=== PATIENT | male | born 1985 | race African-American/Black ===

== ENCOUNTER 2024-12-30 10:20 | Emergency (ER) | payer SELFPAY ==
--- NOTE | ~2024-12-30 | CT_ITS ---
EXAMINATION: CT brain wo con DATE: 12/30/2024 11:54 INDICATION: Headache. TECHNIQUE: Computed tomography (CT) of the head was performed without intravenous contrast. The mA wa s adjusted according to patient size. Iterative reconstruction technique was employed. The dose-lengt h product was 681.00 mGy-cm. COMPARISON: None FINDINGS: There is no intracranial hemorrhage, acute infarction, or abnormal intracranial mass lesion . The ventricles are normal in size. There is mild mucosal thickening in the paranasal sinuses. The m astoid air cells are normal. The orbits are normal. IMPRESSION: 1. Normal brain. Reviewed, dictated and finalized at location A. RIAL LOADER IMPRESSION: 1. Normal brain.
[2024-12-30 10:24] VITALS: BP 132/79; PULSE 72; RESP 16; TEMP 36.7; O2SAT 98
--- OUTSIDE RECORDS SUMMARY | 2024-12-30 11:24 | XMS_ITS | Clinical Summary ---
Author Organization [facility] Address [address] [place] [address] Phone Care Team Providers Care Roof Plumber Name Role Phone Trae Pelayo MD Primary Care Provider [phone] Allergies No known active allergies Medications SUMAtriptan (IMITREX) 50 MG TabletIndication s:Migraine with aura and without status migrainosus, not intractable Take 1 Tablet by mouth once as needed for Migraine. Use as directed. May repeat dose in 2 hours if headache recurs. 9 Tablet 3 2 Active topiramate (TOPAMAX) 25 MG TabletIndication s:Migraine with aura and without status migrainosus, not intractable Take 1 tablet by mouth nightly for 7 days, then take 1 tablet by mouth twice daily for 7 days, then take 1 tablet by mouth in the morning and 2 tablets by mouth in the evening for 7 days, then take 2 tablets by mouth twice daily thereafter. 120 Tablet 2 2 Active triamcinolone (KENALOG) 0.1 % CreamIndications :Dermatitis APPLY TOPICALLY TO BOTH HANDS TWICE DAILY FOR UP TO 14 DAYS 80 g 1 3 Active Active Problems Problem Noted Date Diagnosed Date Vitamin D insufficiency 07/27/2019 Leukopenia 07/27/2019 Excessive thirst 10/01/2018 Foot lesion 10/01/2018 Intractable chronic cluster headache 10/01/2018 History of seizure disorder 10/01/2018 Tobacco abuse 10/01/2018 Resolved Problems Problem Noted Date Diagnosed Date Resolved Date Screening for diabetes mellitus 10/01/2018 10/01/2018 Immunizations Immunization Administration Dates Next Due Influenza Vaccine, Quadrivalent, PF 10/01/2018 Family History Medical History Relation Name Comments No Known Problems Brother 1 Devin No Known Problems Brother 2 Porter Hypertension Father No Known Problems Mother No Known Problems Sister Relation Name Status Comments Brother 1 Devin Alive Brother 2 Porter Alive Father Alive Mother Alive Sister Alive Social History Tobacco Use Types Packs/Day Years Used Date Smoking Tobacco: Every Day Cigars Smokeless Tobacco: Never Tobacco Cessation:Ready to Q uit: No; Counseling Given: Yes Alcohol Use Standard Drinks/Week Comments No 0 (1 standard drink = 0.6 oz pur e alcohol) PHQ-2 Answer Date Recorded Total Score - Questions 1-9 0 04/2022 Education Answer Date Recorded What is the highest level of school you have completed or the highest degree you have received? 12th grade 04/20/2022 Sex and Gender Information Value Date Recorded Sex Assigned at Not on file Legal Sex Male 11:11 PM CDT Gender Identity Not on file Sexual Orientation Not on file Last Filed Vital Signs Vital Sign Reading Time Taken Comments Blood Pressure 118/74 04/22/2022 4:22 PM CDT Pulse 61 04/22/2022 4:22 PM CDT Temperature 36.8 C (98.2 F) 04/22/2022 4:22 PM CDT Respiratory Rate 14 04/22/2022 4:22 PM CDT Oxygen Saturation 99% 04/22/2022 4:22 PM CDT Inhaled Oxygen Concentration - - Weight 88.1 kg (194 lb 4.8 oz) 04/22/2022 4:22 P M CDT Height 198.1 cm (6' 6 ) 04/22/2022 4:22 PM CDT Body Mass Index 22.45 04/22/2022 4:22 PM CDT Plan of Treatment Health Maintenance Due Date Last Done Comments Hepatitis C Virus (HCV) Screening 1987 TdaP Immunization 1987 Hepatitis B Immunization (1 of 3 - 19+ 3-dose series) 2006 Influenza Immunization (#1) 2024 10/01/2018 SARS-COV-2 Immunization ( season) 2024 Respiratory Syncytial Virus (RSV) Immunization (Adult) (1 - 1-dose 75+ series) 2062 Meningococcal Immunization (ACWY) Aged Out No longer eligible based on patient's age to complete this topic Pneumococcal Immunization Combined Aged Out No longer eligible based on patient's age to complete this topic Rotavirus Immunization Aged Out No lo nger eligible based on patient's age to complete this topic Insurance [place] Care Teams Roof Plumber Relationship Specialty Start Date End Date Trae Pelayo MD [address] [address] PCP - General Family Medicine 10/01/18
--- OUTSIDE RECORDS SUMMARY | 2024-12-30 11:24 | XMS_ITS | Encounter Summary ---
Author Organization [facility] Address [address] [place] [address] Phone Care Team Providers Care Manager Track Name Role Phone Trae Pelayo MD Primary Care Provider [phone] Reason for Visit * Reason Comments Medication Refill Encounter Details Date Type Department Care Team (Late st Contact Info) Description 08/06/2023 Refill [facility] [address] [place] [address] James Olson APRN, RECEIVING INSPECTOR [address] [address] Medication Refill Social History Tobacco Use Types Packs/Day Years Used Date Smoking Tobacco: Every Day Cigars Smokeless Tobacco: Never Alcohol Use Standard Drinks/Week Comments No 0 [...] on file Sexual Orientation Not on file documented as of this encounter Miscellaneous Notes * Telephone Encounter - Damaris Toribio RN - 08/07/2023 8:38 AM CDT Medication failed the protocol, provider to review and approve the medication order if appropriate. Requested Prescriptions Pending Prescriptions Disp Refills triamcinolone (KENALOG) 0.1 % Cream [Pharmacy Med Name: TRIAMCINOLONE 0.1% CREAM 80GM] 80 g 1 Sig: APPLY TOPICALLY TO BOTH HANDS TWICE DAILY FOR UP TO 14 DAYS Not Delegated - Topical Steroids Protocol Failed - 08/06/2023 3:10 PM Failed - This refill cannot be delegated Failed - Visit with relevant provider in past 12 months or upcoming 90 days Recent Visits No visits were found meeting these conditions. Showing recent visits within past 365 days and meeting all other requirements Future Appointments No visits were found meeting these conditions. 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
--- NOTE | 2024-12-30 12:06 | ED.GENADULT ---
HPI - General Adult General Chief complaint: Headache Stated complaint: HEAD PRESSURE FOR WEEKS Time Seen by Provider: 12/30/24 11:00 History of Present Illness HPI narrative: Ed Anne is a 39-year-old male who presents today with complaints of having a history of migraines past for years but lately he has had a headache that is been pretty constant to the foci the top of his head for the past 2 weeks. He also states he has had a little bit of URI symptoms that started a couple days ago. He states that his primary care doctor had referred him to a neurologist to follow-up for his migraines but she never did and now he is feeling anxious about that and wants to make sure everything is okay. He denies any nausea vomiting, denies fevers no vision changes rates the pain at 8/10 renal he states that he is not on any medications daily however he used to be on medications for seizures which he had when he was a child. Related Data Home Medications ?Medication ?Instructions ?Recorded ?Confirmed ?Last Taken ?Type No Home Medications 12/30/24 12/30/24 Unknown History Allergies Allergy/AdvReac Type Severity Reaction Status Date / Time No Known Allergies Allergy Verified 12/30/24 12:15 Review of Systems Review of Systems: All systems reviewed & are unremarkable except as noted in HPI and below Exam Narrative: GENERAL: Well-appearing, well-nourished, and in no acute distress. HEAD: Normocephalic, atraumatic. EYES: PERRLA and EOMI. ENT: Nares clear, no rhinorrhea or epistaxis. Mucous membranes moist. Oropharynx without tonsillar hypertrophy exudate or other lesions. Bilateral TMs pearly gillis nonbulging NECK: Supple. No adenopathy or masses. No carotid bruits or JVD CHEST: Clear to auscultation. No respiratory distress. No wheezes rales or rhonchi HEART: Regular rate and rhythm. No murmur heard. Normal peripheral pulses. ABDOMEN: Soft, nontender, nondistended, normal active bowel sounds. EXTREMITIES: Normal range of motion. No edema. SKIN: Warm, dry, no rash. NEURO: No focal deficits. Alert and oriented x3. PSYCH: Normal mood and affect. Course Vital Signs Vital signs: Vital Signs Temperature 36.7 C 12/30/24 10:24 Pulse Rate 72 12/30/24 10:24 Respiratory Rate 16 12/30/24 10:24 Blood Pressure 132/79 12/30/24 10:24 Pulse Oximetry 98 12/30/24 10:24 Temperature 36.7 C 12/30/24 10:24 Pulse Rate 72 12/30/24 10:24 Respiratory Rate 16 12/30/24 10:24 Blood Pressure 132/79 12/30/24 10:24 Pulse Oximetry 98 12/30/24 10:24 Medical Decision Making MDM Narrative Medical decision making narrative: 39-year-old with history of seizures and the child is not on any medications daily who presents with reported having history of migraines for years but recently started having headache that has been going on for about 2 weeks he has not taken any medications for this pain he did not want to mask anything. No other contributing symptoms with this headache. Although he states that he has had some mild URI symptoms of runny nose cough the past 2 days. Neuro exam intact / no focal deficts Plan to check basic labs, head CT while treating him with a migraine cocktail that consisted normal saline bolus, ketorolac 30 mg, Compazine 10 mg and Benadryl 25 mg. cbc-WBC 3.4 unremarkable CMP- unremarkable Head CT- 1. Normal brain. Patient re-evaluated and states that his headache is gone and he is feeling better he is updated on his labs and scan findings. Encouraged patient to continue hydration at home he may take Tylenol Motrin for his headaches a follow-up with neurology as previously referred. Patient agrees with this plan we will also provide him with neurology follow-up from here but he states he does have a logistical he was referred to about a year ago that he plans on using. Medical Records Medical records reviewed: Yes I reviewed the external patient's medical records. Vital Signs Vital Signs: Vital Signs Temperature 36.7 C 12/30/24 10:24 Pulse Rate 72 12/30/24 10:24 Respiratory Rate 16 12/30/24 10:24 Blood Pressure 132/79 12/30/24 10:24 Pulse Oximetry 98 12/30/24 10:24 Temperature 36.7 C 12/30/24 10:24 Pulse Rate 72 12/30/24 10:24 Respiratory Rate 16 12/30/24 10:24 Blood Pressure 132/79 12/30/24 10:24 Pulse Oximetry 98 12/30/24 10:24 Vitals reviwed Lab Data Lab results reviewed: Yes I reviewed the patient's lab results. 12/30/24 12:12 12/30/24 12:12 Labs: Lab Results 12/30/24 Range/Units 12:12 WBC 3.4 L (4.5-10.0) K/mm3 RBC 4.80 (4.6-6.20) M/mm3 Hgb 14.7 (14.0-18.0) g/dL Hct 45.0 (42.0-52.0) % MCV 93.8 (80-100) fl MCH 30.6 (26-34) pg MCHC 32.7 (32-36) g/dl RDW 12.8 (11.5-14.5) % Plt Count 228 (150-375) k/mm3 MPV 9.8 (7.4-10.4) fl Immature Gran % (Auto) 0.0 (0-0.5) % Neut % (Auto) 47.5 (45.5-73.1) % Lymph % (Auto) 43.4 (18.3-44.2) % [place] % (Auto) 7.9 (2.6-8.5) % Eos % (Auto) 0.6 (0-4.4) % Baso % (Auto) 0.6 (0.2-1.2) % Lymph # (Auto) 1.49 (0.9-3.2) K/mm3 [place] # (Auto) 0.3 (0.1-0.6) K/mm3 Eos # (Auto) 0.0 (0-0.3) K/mm3 Baso # (Auto) 0.0 (0.0-0.1) K/mm3 Abs Immat Gran (auto) 0.00 (0.00-0.031) K/mm3 Absolute Neuts (auto) 1.6 (1.3-6.7) K/mm3 Absolute Nucleated RBC 0.000 (0.0-0.012) K/mm3 Nucleated RBC % 0.0 (0.0-0.2) % Sodium 141 (137-145) mmol/L Potassium 4.2 (3.4-5.0) mmol/L Chloride 103 (98-107) mmol/L Carbon Dioxide 30 (22-30) mmol/L Anion Gap 8 (4-12) mmol/L BUN 15 (9-20) mg/dL Creatinine 0.91 (0.7-1.3) mg/dL Estim Creat Clear Calc 122 ml/min Estimated GFR > 60 (59 - ) Glucose 99 (65-110) mg/dL Calcium 9.8 (8.4-10.2) mg/dL Total Bilirubin 0.5 (0.2-1.3) mg/dL AST 26 (17-59) U/L ALT 21 (6-50) U/L Alkaline Phosphatase 50 (38-126) U/L Total Protein 9.0 H (6.3-8.2) g/dL Albumin 5.0 (3.5-5.1) g/dL Imaging Data Radiologist's impression: Impressions Head CT 12/30/24 12:16 IMPRESSION: 1. Normal brain. Discharge Plan Discharge Clinical Impression: Headache Qualifiers: Headache type: unspecified Headache chronicity pattern: acute headache Intractability: intractable Qualified Code(s): R51.9 - Headache, unspecified Migraine Qualifiers: Migraine type: unspecified Status migrainosus presence: without status migrainosus Intractability: intractable Qualified Code(s): G43.919 - Migraine, unspecified, intractable, without status migrainosus Patient Disposition: Home, Self-Care Condition: Stable Instructions: Antibiotic Form Additional Instructions: Continue to push oral hydration drinking plenty of fluids. He may take Tylenol Motrin for your headaches follow-up with your primary care doctor in 1 week follow up with Neurology as we discussed you may use the neurologist that your doctor previously referred to you may use the referred to today. If he develop any worsened symptoms or concerns he may always return to the ER. Patient Language: Maori Prescriptions: No Action No Home Medications Follow-up/Referrals: Gita,Trae Alvarenga MD [Primary Care Provider] - 3 Days Keven Burch MD [Physician] - 2 Weeks Time of Disposition: 13:10
[2024-12-30] MEDS: SODIUM CHLORIDE 0.9% IV 1,000 ML 999 ML IV CONT (12:08)
[2024-12-30] MEDS: KETOROLAC 30 MG/ML VIAL (*BKC) IV PUSH (12:08)
[2024-12-30] MEDS: PROCHLORPERAZINE EDISYLATE 10 MG/2 ML VIAL IV PUSH (12:09)
[2024-12-30] MEDS: diphenhydrAMINE HCl INJ 50 MG/ML VIAL 25 MG IV PUSH (12:09)
[2024-12-30 12:27] LABS: Basophils Percent Auto 0.6 % (0.2-1.2); Eosinophils Percent Auto 0.6 % (0-4.4); Hemoglobin 14.7 g/dL (14.0-18.0); Lymphocytes Absolute Auto 1.49 K/mm3 (0.9-3.2); Lymphocytes Percent Auto 43.4 % (18.3-44.2); Mean Corpuscular HGB Conc 32.7 g/dl (32-36); Mean Corpuscular Hemoglobin 30.6 pg (26-34); Mean Corpuscular Volume 93.8 fl (80-100); Mean Platelet Volume 9.8 fl (7.4-10.4); Monocytes Absolute Auto 0.3 K/mm3 (0.1-0.6); Monocytes Percent Auto 7.9 % (2.6-8.5); Neutrophils Absolute Auto 1.6 K/mm3 (1.3-6.7); Neutrophils Percent Auto 47.5 % (45.5-73.1); Platelet Count Result 228 k/mm3 (150-375); Red Cell Distribution Width 12.8 % (11.5-14.5); White Blood Count 3.4 K/mm3 (4.5-10.0)
[2024-12-30 12:29] LABS: Alanine Aminotransferase 21 U/L (6-50); Alkaline Phosphatase 50 U/L (38-126); Anion Gap 8 mmol/L (4-12); Aspartate Amino Transferase 26 U/L (17-59); Bilirubin,Total 0.5 mg/dL (0.2-1.3); Blood Urea Nitrogen 15 mg/dL (9-20); Calcium 9.8 mg/dL (8.4-10.2); Carbon Dioxide 30 mmol/L (22-30); Chloride 103 mmol/L (98-107); Estimated CRCL calculation 122 ml/min; Estimated Glomerular Filt Rate > 60; Glucose 99 mg/dL (65-110); Potassium 4.2 mmol/L (3.4-5.0); Sodium 141 mmol/L (137-145)
[2024-12-30 14:10] VITALS: BP 130/67; PULSE 62; RESP 18; O2SAT 98
== END 2024-12-30 14:12 | disposition home or self-care (01) ==
PROVIDERS: Emergency Provider Nurse Practitioner Family; PCP Family Medicine
DX: G43.919 Migraine, unspecified, intractable, without status migrainosus (principal)
CPT/HCPCS: 36415; 70450; 80053; 85025; 96361; 96374; 96375; 99284; J0780; J1200; J1885; J7030